=== PATIENT | male | born 1985 | race Caucasian/White ===

== ENCOUNTER 2017-12-27 16:29 | Emergency (ER) | payer MEDICAID ==
[~2017-12-27] VITALS: Ht 177.8 cm; Wt 82.0 kg
[~2017-12-27 16:29] MED LIST: FOLI0.4T2 PO; FURO-92 PO; FURO-93 PO; HYDR2TAB29 PO; OXYC-302 PO; OXYC30TA PO; PANT20TA2 PO; POTA40LI7 PO; PRAS10TA4 PO; PRAS5TAB3 PO; WARF10TA PO
[2017-12-27 17:12] LABS: CULTURE INDICATED? YES; MICROSCOPIC AUTO
[2017-12-27 17:20] LABS: BASOPHILS # (AUTO) 0.06 x10^3/uL (0-0.1); BASOPHILS % (AUTO) 1 % (0-1); EOSINOPHILS # (AUTO) 0.11 x10^3/uL (0-0.4); EOSINOPHILS % (AUTO) 1 % (1-7); LYMPHOCYTES # (AUTO) 2.54 x10^3/uL (1-3.4); LYMPHOCYTES % (AUTO) 30 % (22-44); MD NO; MEAN CORPUSCULAR HEMOGLOBIN 30.8 pg (27.5-34.5); MEAN CORPUSCULAR VOLUME 90.7 fL (81-97); MEAN PLATELET VOLUME 7.5 fL (7.4-10.4); MONOCYTES # (AUTO) 0.66 x10^3/uL (0.2-0.8); MONOCYTES % (AUTO) 8 % (2-9); NEUTROPHILS # (AUTO) 5.04 x10^3/uL (1.8-6.8); NEUTROPHILS % (AUTO) 60 % (42-75); PLATELET COUNT 385 x10^3/uL (130-400); RED BLOOD COUNT 4.72 x10^6/uL (4.38-5.82); RED CELL DISTRIBUTION WIDTH 13.1 % (9.4-14.8)
[2017-12-27 17:27] LABS: ALANINE AMINOTRANSFERASE 37 U/L (12-78); ALBUMIN 4.1 g/dL (3.4-5.0); ANION GAP 6 mmol/L (5-15); CALCIUM 9.1 mg/dL (8.5-10.1); CHLORIDE 107 mmol/L (98-107); CREATININE 1.08 mg/dL (0.7-1.3)
[2017-12-27 17:28] LABS: INTERNATIONAL NORMALIZED RATIO 2.24 (0.93-1.1); PROTHROMBIN TIME 22.7 Seconds (9.6-11.5)
[2017-12-27 17:29] LABS: ALKALINE PHOSPHATASE 80 U/L (45-117); BILIRUBIN,TOTAL 0.4 mg/dL (0.2-1.0); TOTAL PROTEIN 7.3 g/dL (6.4-8.2)
[2017-12-27] MEDS ORDERED: OXYcodone/APAP 5/325MG TABLET PO ONE (17:30)
[2017-12-27] MEDS ORDERED: OXYcodone/APAP 5/325MG TABLET ONE (17:38)
[2017-12-27 18:37] VITALS: BP 116/67
== END 2017-12-27 18:39 | disposition home or self-care (01) ==
LOC: ED 18:30
DX: S39.012A Strain of muscle, fascia and tendon of lower back, initial encounter (principal); X50.9XXA Other and unspecified overexertion or strenuous movements or postures, initial encounter; Y93.89 Activity, other specified; Y99.8 Other external cause status; Y92.89 Other specified places as the place of occurrence of the external cause; Z86.718 Personal history of other venous thrombosis and embolism; I50.9 Heart failure, unspecified; Z87.891 Personal history of nicotine dependence; Z79.01 Long term (current) use of anticoagulants; Z79.4 Long term (current) use of insulin; Z79.84 Long term (current) use of oral hypoglycemic drugs
CPT/HCPCS: 36415; 74176; 80053; 81001; 85025; 85610; 87086; 99285

== ENCOUNTER 2019-04-02 11:50 | Emergency (ER) | payer BC, MEDICAID ==
[~2019-04-02] VITALS: Ht 177.8 cm; Wt 77.6 kg
[~2019-04-02 11:50] MED LIST changes: +AMOX125T PO; +ATOR-2 PO; +CARV3.122 PO; +METF500T17 PO; +PROP10TA51 PO; +WARF1TAB74 PO
--- NOTE | 2019-04-02 13:00 | NUR ---
PT RESTING IN [place] ON MONITOR, PT REQUESTING TO LEAVE AFTER CLEAR EKG, UPDATE PT ON NEED FOR LABWORK AND FURTHER TESTING TO RYDER BLANCHARD. PT AGREEABLE TO STAY AT THIS TIME. CALL LIGHT WTIHIN REACH
[2019-04-02] MEDS ORDERED: MAALOX/HYOSCYAMINE/LIDOCAINE 45 ML BTL ONE (13:20)
[2019-04-02] MEDS ORDERED: MAALOX/HYOSCYAMINE/LIDOCAINE 45 ML BTL PO ONE (13:30)
[2019-04-02 13:44] LABS: BASOPHILS # (AUTO) 0.03 x10^3/uL (0-0.1); BASOPHILS % (AUTO) 0 % (0-1); EOSINOPHILS # (AUTO) 0.12 x10^3/uL (0-0.4); EOSINOPHILS % (AUTO) 2 % (1-7); LYMPHOCYTES % (AUTO) 22 % (22-44); MD NO; MEAN CORPUSCULAR HEMOGLOBIN 31.2 pg (27.5-34.5); MEAN CORPUSCULAR HGB CONC 33.8 g/dL (33.2-36.2); MEAN CORPUSCULAR VOLUME 92.5 fL (81-97); MONOCYTES # (AUTO) 0.71 x10^3/uL (0.2-0.8); MONOCYTES % (AUTO) 11 % (2-9); NEUTROPHILS # (AUTO) 4.39 x10^3/uL (1.8-6.8); NEUTROPHILS % (AUTO) 65 % (42-75); PLATELET COUNT 325 x10^3/uL (130-400); RED BLOOD COUNT 5.14 x10^6/uL (4.38-5.82); RED CELL DISTRIBUTION WIDTH 13.6 % (9.4-14.8)
[2019-04-02 13:55] LABS: ALBUMIN 3.9 g/dL (3.4-5.0); ANION GAP 7 mmol/L (5-15); CHLORIDE 100 mmol/L (98-107)
--- NOTE | 2019-04-02 13:56 | NUR ---
TASK RN: PT RESTING ON GURNEY. NADN. SALAZAR.
[2019-04-02 14:03] LABS: ALANINE AMINOTRANSFERASE 37 U/L (12-78); ALKALINE PHOSPHATASE 123 U/L (45-117); BILIRUBIN,TOTAL 1.5 mg/dL (0.2-1.0); TOTAL PROTEIN 7.7 g/dL (6.4-8.2); TROPONIN I < 0.015 ng/mL (0.000-0.045)
[2019-04-02 14:57] VITALS: BP 141/100
== END 2019-04-02 14:59 | disposition home or self-care (01) ==
LOC: ED 14:53
DX: R07.2 Precordial pain (principal); R06.02 Shortness of breath; E11.9 Type 2 diabetes mellitus without complications; I50.9 Heart failure, unspecified; Z87.891 Personal history of nicotine dependence
CPT/HCPCS: 36415; 71045; 80053; 83690; 84484; 85025; 93005; 99284

== ENCOUNTER 2019-05-18 18:16 | Emergency (ER) | payer BC ==
[~2019-05-18] VITALS: Ht 177.8 cm; Wt 75.1 kg
--- NOTE | 2019-05-18 19:30 | NUR ---
PT C/O CP WHILE IN LOBBY, CARDIAC H/X WITH 3 STENTS. PT TO TRIAGE, PA AT HIS SIDE FOR EVAL Addendum: 05/18/19 at 1936 by EVITA PT C/O SHARP SUBSTERNAL CP THAT RADIATEDS TO BACK, ALSO C/O SOB. EKG COMPLETED
[2019-05-18 19:55] LABS: BASOPHILS # (AUTO) 0.05 x10^3/uL (0-0.1); BASOPHILS % (AUTO) 1 % (0-1); EOSINOPHILS # (AUTO) 0.03 x10^3/uL (0-0.4); EOSINOPHILS % (AUTO) 1 % (1-7); LYMPHOCYTES # (AUTO) 2.11 x10^3/uL (1-3.4); LYMPHOCYTES % (AUTO) 38 % (22-44); MD NO; MEAN CORPUSCULAR HEMOGLOBIN 32.5 pg (27.5-34.5); MEAN CORPUSCULAR HGB CONC 33.1 g/dL (33.2-36.2); MEAN CORPUSCULAR VOLUME 98.1 fL (81-97); MEAN PLATELET VOLUME 6.6 fL (7.4-10.4); MONOCYTES # (AUTO) 0.52 x10^3/uL (0.2-0.8); MONOCYTES % (AUTO) 9 % (2-9); NEUTROPHILS # (AUTO) 2.83 x10^3/uL (1.8-6.8); NEUTROPHILS % (AUTO) 51 % (42-75); PLATELET COUNT 434 x10^3/uL (130-400); RED BLOOD COUNT 5.37 x10^6/uL (4.38-5.82); RED CELL DISTRIBUTION WIDTH 16.8 % (9.4-14.8)
--- NOTE | 2019-05-18 19:56 | NUR ---
charge manager: patient to room 37 from [facility]
[2019-05-18 20:06] LABS: ALBUMIN 4.1 g/dL (3.4-5.0); ANION GAP 9 mmol/L (5-15); CALCIUM 8.9 mg/dL (8.5-10.1); CHLORIDE 102 mmol/L (98-107)
[2019-05-18 20:12] LABS: ALANINE AMINOTRANSFERASE 36 U/L (12-78); ALKALINE PHOSPHATASE 98 U/L (45-117); BILIRUBIN,TOTAL 1.1 mg/dL (0.2-1.0); CREATININE 1.02 mg/dL (0.7-1.3); TOTAL PROTEIN 8.4 g/dL (6.4-8.2); TROPONIN I < 0.015 ng/mL (0.000-0.045)
[2019-05-18] MEDS ORDERED: PANTOPRAZOLE 40 MG IV ONE (20:46)
[2019-05-18] MEDS ORDERED: PROCHLORPERAZINE 5 MG/ML, 2ML ONE (20:46)
--- NOTE | 2019-05-18 20:57 | NUR ---
IN ROOM TO MEDICATE PT. PT EXPRESSES TO THIS RN THAT PAIN IS WHAT MAKES HIM THROW UP. PT ASKED IF HE HAD BROUGHT UP THE PAIN TO THE MD. PT STATED "NO NOT REALLY." MD MADE AWARE OF THIS CONVERSATION NO ORDERS RECIEVED.
[2019-05-18] MEDS ORDERED: PROCHLORPERAZINE 5 MG/ML, 2ML IVPush ONE (21:00)
[2019-05-18] MEDS ORDERED: PANTOPRAZOLE 40 MG IV IVPush ONE (21:00)
[2019-05-18] MEDS ORDERED: SODIUM CHLORIDE 0.9% 1,000ML IVBOLUS ONE ×2 (21:00)
[2019-05-18] MEDS ORDERED: MAALOX/HYOSCYAMINE/LIDOCAINE 45 ML BTL ONE (21:23)
[2019-05-18 21:25] VITALS: BP 125/73
--- NOTE | 2019-05-18 21:26 | NUR ---
TASK RN: PT REPORTING EPIGASTIC PAIN, MD UPDATED. PT MEDICATED PER JUL.
[2019-05-18] MEDS ORDERED: MAALOX/HYOSCYAMINE/LIDOCAINE 45 ML BTL PO ONE (21:30)
--- NOTE | 2019-05-18 21:33 | NUR ---
IN ROOM TO SPEAK WITH PT. PT REQUESTING "PAIN MEDS." PT REDIRECTED TO CONVERSATION THAT TOOK PALCE BETWEEN HIM AND MD. PT WAS MEDICATED FOR SYMPTOMS AND NO NEW ORDERS RECIEVED. PT AT THIS TIME WISHES TO LEAVE AMA. MD MADE AWARE OF SITUATION. AMA SIGNED BY PT. PT ENCOURAGED TO RETURN TO THE ER IF SYMPTOMS PERSIST OR WORSEN IN ANTY WAY.
== END 2019-05-18 21:38 | disposition left against medical advice (07) ==
LOC: ED 20:47
DX: R11.10 Vomiting, unspecified (principal); R10.9 Unspecified abdominal pain; G89.29 Other chronic pain; I25.2 Old myocardial infarction; I50.9 Heart failure, unspecified; E11.9 Type 2 diabetes mellitus without complications
CPT/HCPCS: 36415; 71045; 80053; 83690; 84484; 85025; 93005; 96361; 96374; 96375; 99284; C9113; J0780; J7030

== ENCOUNTER 2019-08-08 11:50 | Emergency (ER) | payer BC ==
[~2019-08-08] VITALS: Ht 177.8 cm; Wt 78.7 kg
--- NOTE | 2019-08-08 12:26 | NUR ---
PT TO ROOM 6 PER PEDIS. PT HAS HISTORY OF GI BLEED WITH HEART HISTORY. PT STATES "I'VE BEEN VERY NAUSEATED THE LAST FEW DAYS. YESTERDAY I SLEPT 14 HOURS, AND WHEN I WOKE UP I HAD BRIGHT RED BLOOD IN MY MOUTH. I JUST NEED THE NAUSE AND PAIN TO GO AWAY." PAIN IN EPIGASTRIC AREA. LAB DRAWN, IV STARTED. PT IN GOWN, PLACED ON MONITOR AND CALL LIGHT GIVEN.
[2019-08-08] MEDS ORDERED: PANTOPRAZOLE 80 MG in SODIUM CHLORIDE 0.9% 50 ML IVPB ONE (12:33)
[2019-08-08] MEDS ORDERED: ONDANSETRON 2MG/ML, 2ML ONE ×2 (12:51→14:07)
[2019-08-08] MEDS ORDERED: HYDROmorphone 1 MG/ML, 1ML INJ ONE ×4 (12:51→15:09)
[2019-08-08] MEDS ORDERED: PANTOPRAZOLE 40 MG IV ONE (12:52)
[2019-08-08 13:00] LABS: BASOPHILS # (AUTO) 0.05 x10^3/uL (0-0.1); BASOPHILS % (AUTO) 1 % (0-1); EOSINOPHILS # (AUTO) 0.06 x10^3/uL (0-0.4); EOSINOPHILS % (AUTO) 1 % (1-7); LYMPHOCYTES # (AUTO) 1.37 x10^3/uL (1-3.4); LYMPHOCYTES % (AUTO) 31 % (22-44); MD NO; MEAN CORPUSCULAR HEMOGLOBIN 32.7 pg (27.5-34.5); MEAN CORPUSCULAR HGB CONC 33.7 g/dL (33.2-36.2); MEAN PLATELET VOLUME 7.1 fL (7.4-10.4); MONOCYTES # (AUTO) 0.58 x10^3/uL (0.2-0.8); MONOCYTES % (AUTO) 13 % (2-9); NEUTROPHILS # (AUTO) 2.38 x10^3/uL (1.8-6.8); NEUTROPHILS % (AUTO) 54 % (42-75); PLATELET COUNT 380 x10^3/uL (130-400); RED BLOOD COUNT 4.96 x10^6/uL (4.38-5.82); RED CELL DISTRIBUTION WIDTH 13.9 % (9.4-14.8)
[2019-08-08] MEDS ORDERED: HYDROmorphone 2 MG/ML, 1ML IVPush PRN ×2 (13:00→14:00)
[2019-08-08] MEDS ORDERED: SODIUM CHLORIDE FLUSH 10ML SYR IVF ONE (13:00)
[2019-08-08] MEDS ORDERED: ONDANSETRON 2MG/ML, 2ML IVPush ONE ×2 (13:00→14:00)
--- NOTE | 2019-08-08 13:00 | NUR ---
IV MEDICATIONS WORKING, PT STILL HAVE PAIN. REQUESTING ADDITIONAL MEDICATIONS. MD NOTIFIED.
[2019-08-08 13:04] LABS: ALANINE AMINOTRANSFERASE 49 U/L (12-78); ALBUMIN 3.7 g/dL (3.4-5.0); ANION GAP 7 mmol/L (5-15); CALCIUM 8.5 mg/dL (8.5-10.1); CHLORIDE 106 mmol/L (98-107)
[2019-08-08 13:05] LABS: INTERNATIONAL NORMALIZED RATIO 1.12 (0.93-1.1); PROTHROMBIN TIME 11.9 Seconds (9.6-11.5)
[2019-08-08 13:09] LABS: ALKALINE PHOSPHATASE 71 U/L (45-117); BILIRUBIN,TOTAL 0.6 mg/dL (0.2-1.0); CREATININE 1.08 mg/dL (0.7-1.3); TOTAL PROTEIN 7.4 g/dL (6.4-8.2); TROPONIN I < 0.015 ng/mL (0.000-0.045)
--- NOTE | 2019-08-08 13:33 | NUR ---
PT MEDICATED. PT STABLE, LYING ON BED.
--- NOTE | 2019-08-08 14:51 | NUR ---
PT STABLE. REQUESTING SOMETHING TO DRINK, AND WOULD LIKE TO GO HOME.
--- NOTE | 2019-08-08 15:00 | NUR ---
PT FEELING MUCH BETTER, CONTINUE TO LAY ON CART. PAIN AND NAUSEA ARE GONE.
[2019-08-08 16:24] VITALS: BP 106/75
--- NOTE | 2019-08-08 16:27 | NUR ---
DISCHARGE INSTRUCTIONS GIVEN TO PATIENT WITH 2 SCRIPTS. PT VERBALIZES UNDERSTANDING OF ALL INSTRUCTIONS AND FOLLOW UP.
== END 2019-08-08 16:27 | disposition home or self-care (01) ==
LOC: ED 14:32
DX: K92.1 Melena (principal); E11.9 Type 2 diabetes mellitus without complications; I50.9 Heart failure, unspecified; I25.2 Old myocardial infarction
CPT/HCPCS: 36415; 71045; 80053; 83605; 83690; 84484; 85025; 85610; 85730; 86850; 86900; 93005; 96374; 96375; 96376; 99285; C9113; J2405

== ENCOUNTER 2019-08-09 06:12 | Emergency (ER) | payer BC ==
[~2019-08-09] VITALS: Ht 177.8 cm; Wt 80.7 kg
--- NOTE | 2019-08-09 06:42 | NUR ---
PT RESTING ON GURNEY, MONITORS APPLIED, SIDERAILS UP X2, PROVIDED PT WITH URINE CUP FOR SAMPLE, CALL LIGHT WITHIN REACH
[2019-08-09 06:57] LABS: BASOPHILS # (AUTO) 0.03 x10^3/uL (0-0.1); BASOPHILS % (AUTO) 1 % (0-1); EOSINOPHILS # (AUTO) 0.13 x10^3/uL (0-0.4); EOSINOPHILS % (AUTO) 2 % (1-7); LYMPHOCYTES # (AUTO) 1.67 x10^3/uL (1-3.4); LYMPHOCYTES % (AUTO) 29 % (22-44); MD NO; MEAN CORPUSCULAR HEMOGLOBIN 32.8 pg (27.5-34.5); MEAN CORPUSCULAR HGB CONC 34.1 g/dL (33.2-36.2); MEAN CORPUSCULAR VOLUME 96.2 fL (81-97); MEAN PLATELET VOLUME 6.7 fL (7.4-10.4); MONOCYTES # (AUTO) 0.63 x10^3/uL (0.2-0.8); MONOCYTES % (AUTO) 11 % (2-9); NEUTROPHILS # (AUTO) 3.37 x10^3/uL (1.8-6.8); NEUTROPHILS % (AUTO) 58 % (42-75); PLATELET COUNT 325 x10^3/uL (130-400); RED BLOOD COUNT 4.34 x10^6/uL (4.38-5.82); RED CELL DISTRIBUTION WIDTH 13.3 % (9.4-14.8)
--- NOTE | 2019-08-09 07:00 | NUR ---
received report from olga campa.
[2019-08-09 07:09] LABS: ALANINE AMINOTRANSFERASE 48 U/L (12-78); ALBUMIN 3.2 g/dL (3.4-5.0); ANION GAP 11 mmol/L (5-15); CALCIUM 7.9 mg/dL (8.5-10.1); CHLORIDE 103 mmol/L (98-107); CREATININE 1.06 mg/dL (0.7-1.3)
[2019-08-09 07:11] LABS: ALKALINE PHOSPHATASE 65 U/L (45-117); BILIRUBIN,TOTAL 0.6 mg/dL (0.2-1.0); TOTAL PROTEIN 6.3 g/dL (6.4-8.2)
[2019-08-09 07:33] VITALS: BP 115/80
--- NOTE | 2019-08-09 07:38 | NUR ---
pt stating he needs to leave for work in 10 minutes, states only cares about lipase level, resting in bed, respirations even and unlabored, no signs of distress.
--- NOTE | 2019-08-09 07:46 | NUR ---
pt asked for ama forms, pt educated that doctor has not reassessed, and educated on disease process. pt signed ama forms despite education, stating if he doesn't get to work he'll lose his job.
== END 2019-08-09 07:50 | disposition left against medical advice (07) ==
LOC: ED 06:40
DX: R10.13 Epigastric pain (principal); F17.210 Nicotine dependence, cigarettes, uncomplicated; I50.9 Heart failure, unspecified; E11.9 Type 2 diabetes mellitus without complications; I25.2 Old myocardial infarction; E78.5 Hyperlipidemia, unspecified
CPT/HCPCS: 36415; 80053; 83690; 85025; 99283

== ENCOUNTER 2019-08-11 16:11 | Emergency (ER) | payer BC ==
[~2019-08-11] VITALS: Ht 177.8 cm; Wt 80.6 kg
--- NOTE | 2019-08-11 16:36 | NUR ---
THIS IS A 34 YO M W/ C/O NAUSEA, BRIGHT RED BLOODY EMESIS AND EPIGASTRIC PAIN 8/10 X6 DAYS. PT REPORTS HE WAS RECENTLY SEEN HERE AND WAS TO BE ADMITTED BUT LEFT AMA DUE TO WORK. PT REPORTS WORSENING SYMPTOMS. PT IS TACHYCARDIC, OTHER VS WDL. PIV STARTED, LABS DRAWN. PT IS RESTING ON GURNEY W/ CALL LIGHT IN REACH. AWAITING ED EVAL.
[2019-08-11] MEDS ORDERED: ONDANSETRON 2MG/ML, 2ML ONE ×2 (16:42→17:51)
[2019-08-11] MEDS ORDERED: FAMOTIDINE 20 MG/2 ML IV ONE (17:00)
[2019-08-11] MEDS ORDERED: SODIUM CHLORIDE 0.9% 1,000ML IVBOLUS ONE (17:00)
[2019-08-11] MEDS ORDERED: SODIUM CHLORIDE 0.9% 1,000 ML IV ONE (17:00)
[2019-08-11] MEDS ORDERED: SODIUM CHLORIDE FLUSH 10ML SYR IVF ONE (17:00)
[2019-08-11] MEDS ORDERED: FAMOTIDINE 20 MG/2 ML ONE (17:05)
[2019-08-11] MEDS ORDERED: HYDROmorphone 1 MG/ML, 1ML INJ ONE ×2 (17:05→17:51)
[2019-08-11] MEDS: HYDROmorphone 2 MG/ML, 1ML IVPush PRN ×2 (17:09→17:52)
--- NOTE | 2019-08-11 17:17 | NUR ---
PT MEDICATED PER EMAR. CONNECTED TO MONITORING. CALL LIGHT IN REACH. REPORTS RELIEF OF PAIN W/ MEDS.
[2019-08-11 17:36] LABS: BASOPHILS # (AUTO) 0.04 x10^3/uL (0-0.1); BASOPHILS % (AUTO) 1 % (0-1); EOSINOPHILS # (AUTO) 0.33 x10^3/uL (0-0.4); EOSINOPHILS % (AUTO) 5 % (1-7); LYMPHOCYTES # (AUTO) 2.34 x10^3/uL (1-3.4); LYMPHOCYTES % (AUTO) 32 % (22-44); MD NO; MEAN CORPUSCULAR HEMOGLOBIN 32.8 pg (27.5-34.5); MEAN CORPUSCULAR VOLUME 96.4 fL (81-97); MEAN PLATELET VOLUME 7.5 fL (7.4-10.4); MONOCYTES # (AUTO) 0.59 x10^3/uL (0.2-0.8); MONOCYTES % (AUTO) 8 % (2-9); NEUTROPHILS # (AUTO) 4.01 x10^3/uL (1.8-6.8); NEUTROPHILS % (AUTO) 55 % (42-75); PLATELET COUNT 366 x10^3/uL (130-400); RED BLOOD COUNT 4.27 x10^6/uL (4.38-5.82); RED CELL DISTRIBUTION WIDTH 13.4 % (9.4-14.8)
[2019-08-11 17:47] LABS: ALBUMIN 3.3 g/dL (3.4-5.0); ANION GAP 13 mmol/L (5-15); CALCIUM 8.2 mg/dL (8.5-10.1); CHLORIDE 110 mmol/L (98-107)
[2019-08-11 17:50] LABS: ALANINE AMINOTRANSFERASE 40 U/L (12-78); ALKALINE PHOSPHATASE 73 U/L (45-117); BILIRUBIN,TOTAL 0.1 mg/dL (0.2-1.0); CREATININE 0.93 mg/dL (0.7-1.3); TOTAL PROTEIN 6.9 g/dL (6.4-8.2)
[2019-08-11] MEDS ORDERED: protonix (17:50)
[2019-08-11] MEDS ORDERED: APIX5TAB PO (17:50)
[2019-08-11 17:55] VITALS: BP 115/65
--- NOTE | 2019-08-11 17:57 | NUR ---
PT MEDICATED PER EMAR FOR C/O NAUSEA AND PAIN 12/29.
[2019-08-11] MEDS ORDERED: ONDANSETRON 2MG/ML, 2ML IVPush ONE (18:00)
--- NOTE | 2019-08-11 18:00 | NUR ---
ALL TESTS RESULTED. PT IS UP FOR RECHECK AT THIS TIME.
--- NOTE | 2019-08-11 18:53 | NUR ---
Patient/Caregiver given discharge instructions and they have confirmed that they understand the instructions. Patient ambulatory with steady gait.
== END 2019-08-11 18:55 | disposition home or self-care (01) ==
LOC: ED 16:42
DX: K29.20 Alcoholic gastritis without bleeding (principal); F10.20 Alcohol dependence, uncomplicated; E11.9 Type 2 diabetes mellitus without complications; E78.5 Hyperlipidemia, unspecified; I25.2 Old myocardial infarction; I50.9 Heart failure, unspecified; Z86.718 Personal history of other venous thrombosis and embolism; Z87.891 Personal history of nicotine dependence; Z95.0 Presence of cardiac pacemaker; Y90.9 Presence of alcohol in blood, level not specified
CPT/HCPCS: 36415; 80053; 80307; 83690; 85025; 96374; 96375; 96376; 99284; J1170; J2405; J3490; J7030

== ENCOUNTER 2019-10-03 14:26 | Emergency (ER) | payer BC ==
[~2019-10-03] VITALS: Ht 177.8 cm; Wt 80.0 kg
[~2019-10-03 14:26] MED LIST changes: +APIX5TAB PO; -OXYC30TA PO; +OXYC30TA3 PO; +protonix
--- NOTE | 2019-10-03 14:27 | NUR ---
Late Entry: pt wheeled back to room, changed into gown, resting on gurney, RESP WNL, call light on lap, placed on monitor, waiting on test results. DONATO.
[2019-10-03] MEDS ORDERED: ASPIRIN 81 MG TABLET CHEW ONE (14:59)
[2019-10-03] MEDS ORDERED: ASPIRIN 81 MG TABLET CHEW PO ONE (15:00)
[2019-10-03] MEDS ORDERED: SODIUM CHLORIDE FLUSH 10ML SYR IVF ONE (15:00)
--- NOTE | 2019-10-03 15:24 | NUR ---
Libby ferrera in ED - 10/03/19 at 1526 by CECILIA pt wheeled back to room, changed into gown, resting on gurney, RESP WNL, call light on lap, placed on monitor, waiting on test results. DONATO.
--- NOTE | 2019-10-03 15:26 | NUR ---
pt resting on gurney, RESP WNL, NAD, call light on lap, placed on monitor, waiting on test results. WCTM.
[2019-10-03 15:28] VITALS: BP 130/91
[2019-10-03 15:29] LABS: BASOPHILS # (AUTO) 0.04 x10^3/uL (0-0.1); BASOPHILS % (AUTO) 1 % (0-1); EOSINOPHILS # (AUTO) 0.22 x10^3/uL (0-0.4); EOSINOPHILS % (AUTO) 3 % (1-7); LYMPHOCYTES # (AUTO) 1.41 x10^3/uL (1-3.4); LYMPHOCYTES % (AUTO) 19 % (22-44); MD NO; MEAN CORPUSCULAR HEMOGLOBIN 32.9 pg (27.5-34.5); MEAN CORPUSCULAR HGB CONC 33.7 g/dL (33.2-36.2); MEAN CORPUSCULAR VOLUME 97.4 fL (81-97); MEAN PLATELET VOLUME 6.7 fL (7.4-10.4); MONOCYTES # (AUTO) 0.64 x10^3/uL (0.2-0.8); MONOCYTES % (AUTO) 9 % (2-9); NEUTROPHILS # (AUTO) 5.14 x10^3/uL (1.8-6.8); NEUTROPHILS % (AUTO) 69 % (42-75); PLATELET COUNT 378 x10^3/uL (130-400); RED BLOOD COUNT 4.16 x10^6/uL (4.38-5.82); RED CELL DISTRIBUTION WIDTH 16.5 % (9.4-14.8)
--- NOTE | 2019-10-03 15:38 | NUR ---
Pt decided to AMA. IV DC'd, pt P/W/D, NAD, RESP WNL. Even and steady gait.
[2019-10-03 15:41] LABS: ALANINE AMINOTRANSFERASE 24 U/L (12-78); ALBUMIN 4.2 g/dL (3.4-5.0); ANION GAP 9 mmol/L (5-15); CALCIUM 9.2 mg/dL (8.5-10.1); CHLORIDE 101 mmol/L (98-107); CREATININE 0.94 mg/dL (0.7-1.3)
[2019-10-03 15:45] LABS: ALKALINE PHOSPHATASE 87 U/L (45-117); BILIRUBIN,TOTAL 0.5 mg/dL (0.2-1.0); TROPONIN I < 0.015 ng/mL (0.000-0.045)
[2019-10-03 16:01] LABS: PROTHROMBIN TIME 10.6 Seconds (9.6-11.5)
== END 2019-10-03 15:39 | disposition home or self-care (01) ==
LOC: ED 15:03
DX: R00.0 Tachycardia, unspecified (principal); R07.89 Other chest pain; I25.2 Old myocardial infarction; I11.0 Hypertensive heart disease with heart failure; I50.9 Heart failure, unspecified; E11.9 Type 2 diabetes mellitus without complications; Z86.718 Personal history of other venous thrombosis and embolism
CPT/HCPCS: 36415; 71045; 80053; 84484; 85025; 85610; 85730; 93005; 99285

== ENCOUNTER 2019-11-19 10:02 | Inpatient (IN) | payer BC ==
[~2019-11-19] VITALS: Ht 177.8 cm; Wt 81.2 kg
[2019-11-19] MEDS ORDERED: ONDANSETRON 2MG/ML, 2ML ONE ×2 (10:33→12:37)
--- NOTE | 2019-11-19 10:45 | NUR ---
late entry for 1030: pt presents to ED with c/o sternal chest pain and sob x 9 days, also notes right ear pain and congestion. pt states for last several days he has been unable to tolerate po intake d/t n/v/d. pt denies drug use, states he is withdrawing from etoh, states last drink yesterday. pt notes he has not taken any of his home meds x 2 weeks, including warfarin. pt attached to all monitors, sinus tach with no ectopy on vehicle monitor technician, rate 110's. ekg taken on arrival. this RN unable to establish PIV in arm, left EJ PIV placed on first attempt with pt consent. PIV flushes easily with blood return. ERP notified pt has not taken coumadin x 2 weeks and has c/o cp with sob, ERP declines to order CT at this time. Addendum: 11/19/19 at 1314 by ELSIE late entry for 104: pt presents to ED with c/o sternal chest pain and sob x 9 days, also notes right ear pain and congestion. pt states for last several days he has been unable to tolerate po intake d/t n/v/d. pt denies drug use, states he is withdrawing from etoh, states last drink yesterday. pt notes he has not taken any of his home meds x 2 weeks, including warfarin. pt attached to all monitors, sinus tach with no ectopy on vehicle monitor technician, rate 110's. ekg taken on arrival. this RN unable to establish PIV in arm, left EJ PIV placed on first attempt with pt consent. PIV flushes easily with blood return. ERP notified pt has not taken coumadin x 2 weeks and has c/o cp with sob, ERP declines to order CT at this time.
[2019-11-19] MEDS ORDERED: ONDANSETRON 2MG/ML, 2ML IVPush ONE ×2 (11:00→13:00)
[2019-11-19] MEDS ORDERED: SODIUM CHLORIDE 0.9% 1,000ML IVBOLUS ONE (11:00)
--- NOTE | 2019-11-19 11:00 | NUR ---
LATE ENTRY FOR 1100: PT INSTRUCTED TO PROVIDE CLEAN CATCH URINE SAMPLE, PT DENIES URGE AT THIS TIME.
[2019-11-19 11:09] LABS: BASOPHILS % (AUTO) 0 % (0-1); EOSINOPHILS % (AUTO) 0 % (1-7); LYMPHOCYTES # (AUTO) 0.77 x10^3/uL (1-3.4); LYMPHOCYTES % (AUTO) 15 % (22-44); MD NO; MEAN CORPUSCULAR HEMOGLOBIN 33.2 pg (27.5-34.5); MEAN CORPUSCULAR HGB CONC 33.1 g/dL (33.2-36.2); MEAN CORPUSCULAR VOLUME 100.2 fL (81-97); MEAN PLATELET VOLUME 7.7 fL (7.4-10.4); MONOCYTES # (AUTO) 0.35 x10^3/uL (0.2-0.8); MONOCYTES % (AUTO) 7 % (2-9); NEUTROPHILS # (AUTO) 3.99 x10^3/uL (1.8-6.8); NEUTROPHILS % (AUTO) 78 % (42-75); PLATELET COUNT 101 x10^3/uL (130-400); RED BLOOD COUNT 4.38 x10^6/uL (4.38-5.82); RED CELL DISTRIBUTION WIDTH 14.2 % (9.4-14.8)
[2019-11-19] MEDS ORDERED: LORazepam 2 MG/ML, 1ML ONE ×4 (11:14→16:32)
[2019-11-19 11:19] LABS: ALBUMIN 2.2 g/dL (3.4-5.0); ANION GAP 14 mmol/L (5-15); CALCIUM 7.7 mg/dL (8.5-10.1); CHLORIDE 87 mmol/L (98-107)
[2019-11-19] MEDS: LORazepam 2 MG/ML, 1ML IVPush PRN ×3 (11:23→13:54)
[2019-11-19 11:26] LABS: ALANINE AMINOTRANSFERASE 109 U/L (12-78); ALKALINE PHOSPHATASE 378 U/L (45-117); BILIRUBIN,TOTAL 1.4 mg/dL (0.2-1.0); CREATININE 0.87 mg/dL (0.7-1.3); TOTAL PROTEIN 5.6 g/dL (6.4-8.2)
[2019-11-19] MEDS ORDERED: SODIUM CHLORIDE FLUSH 10ML SYR IVF ONE (11:30)
--- NOTE | 2019-11-19 11:30 | NUR ---
pt seen and examined by BETH Ramos, pt is a&o, resps even and unlabored. pt is tremulous, stating "I think I'm withdrawing from alcohol." ativan ordered and admin per emar, pt tolerating well. pt states anxiety, nausea and tremors improved s/p ativan admin. pt is sinus tach rate 110's on classroom monitor with no ectopy. left EJ PIV infusing NS with no s/sx infiltration.
[2019-11-19 11:39] LABS: TROPONIN I 0.017 ng/mL (0.000-0.045)
[2019-11-19] MEDS ORDERED: NS + 40MEQ KCL 1,000 ML IV ONE ×2 (11:43→12:09)
[2019-11-19 12:26] LABS: PROTHROMBIN TIME 56.7 Seconds (9.6-11.5)
[2019-11-19 12:27] LABS: INTERNATIONAL NORMALIZED RATIO 5.26 (0.93-1.1)
--- NOTE | 2019-11-19 12:45 | NUR ---
pt resting on gurney, resps even and unlabored. pt requests second dose ativan, reporting increased anxiety, tremors noted. pt medicated per emar, tolerated well. pt remains in sinus tach, rate 110's with no ectopy. NS with K infusing via IV pump to EJ, no s/sx infiltration. pt denies pain, no swelling or leakage noted. pt is a&o, resps even and unlabored, able to speak in full sentences without difficulty.
[2019-11-19] MEDS ORDERED: WARF7.5T46 PO (12:46)
[2019-11-19] MEDS ORDERED: CLON1TAB PO (12:47)
[2019-11-19] MEDS ORDERED: SODIUM CHLORIDE FLUSH 10ML SYR IVF PRN (13:00)
--- NOTE | 2019-11-19 13:18 | NUR ---
PATSY QUEEN at bedside for admit assessment.
--- NOTE | 2019-11-19 13:30 | NUR ---
THIS RN NOTIFIED [facility] MD THAT PT C/O RT EAR PAIN AND DRIED BLOOD IS NOTED TO OUTER EAR. PT INITIALLY DENIED TRAUMA BUT THEN STATES HE FELL 1 MONTH AGO WITH NO INJURY TO EAR AT THAT TIME. [facility] MD NOTIFIED THAT PT HASN'T HAD COUMADIN X 2 WEEKS AND HAS CP/SOB, NO ORDERS RECEIVED.
--- NOTE | 2019-11-19 14:02 | NUR ---
PT'S HR INCREASED, PT C/O HEADACHE, TREMORS NOTED WITH ARMS EXTENDED. PT MEDICATED PER EMAR WITH 3RD DOSE ATIVAN. PT IS SINUS TACH RATE 130'S ON CARDIAC MONTIOR, NO ECTOPY NOTED. AWAITING BED ASSIGNMENT AND TRANSPORT TO MED/TELE FLOOR.
--- NOTE | 2019-11-19 14:48 | NUR ---
PT TO CT.
[2019-11-19] MEDS ORDERED: CALCIUM GLUCONATE 0.46MEQ/1ML IVPush ONE (15:00)
[2019-11-19] MEDS ORDERED: LORazepam 1MG TABLET PO PRN ×2 (15:00)
[2019-11-19] MEDS ORDERED: LORazepam 2 MG/ML, 1ML IV PRN ×3 (15:00)
[2019-11-19] MEDS ORDERED: hydrALAzine 20 MG/ML, 1ML IVPush PRN (15:00)
[2019-11-19] MEDS ORDERED: LABETALOL 5MG/ML, 20ML IVPush PRN (15:00)
--- NOTE | 2019-11-19 15:00 | NUR ---
pt back from CT at this time, report given to MILLIE Coffman who is assuming care.
--- NOTE | 2019-11-19 15:03 | NUR ---
Page to [facility] med regarding medication clarification.
--- NOTE | 2019-11-19 15:23 | NUR ---
Spoke with MD Nila GARNER about pts low K+ and Low Ca and the order of calcium gluconate could drop the K+ further and pt already has significant cardiac hx. Per MD Garciaion to hold off on giving calcium gluconate until next CMP and to stop order for d5 1/2NS 40kcl IVF and chage to NS 40K @150ml hrs. Head CT results read back to .
[2019-11-19 15:34] LABS: TROPONIN I < 0.015 ng/mL (0.000-0.045)
[2019-11-19] MEDS ORDERED: INSULIN LISPRO SINGLE DOSE, ER SQ-INSULIN ONE (15:42)
[2019-11-19] MEDS ORDERED: D5%-0.45NACL+KCL 20MEQ 1,000 ML IV SCH (16:00)
[2019-11-19] MEDS: INSULIN LISPRO 100 UNITS/ML, PEN SQ-INSULIN SCH ×2 (16:49→19:36)
--- NOTE | 2019-11-19 16:50 | NUR ---
Pt medicated per emar, moved to hospital bed.
[2019-11-19] MEDS ORDERED: CEFTRIAXONE PMX 1GM/50ML 50 ML ONE (17:24)
[2019-11-19] MEDS: CEFTRIAXONE PMX 1GM/50ML 50 ML IV SCH (17:29)
--- NOTE | 2019-11-19 17:34 | NUR ---
Shavon Riojas RN informed of discussion with [facility] and need to call back when BMP is resulted to get okay to proceede with Calcium gluconate.
[2019-11-19 17:45] LABS: ANION GAP 11 mmol/L (5-15); CALCIUM 6.9 mg/dL (8.5-10.1); CHLORIDE 91 mmol/L (98-107); CREATININE 1.09 mg/dL (0.7-1.3)
[2019-11-19] MEDS ORDERED: POTASSIUM CHLORIDE 20 MEQ TAB.ER.PRT PO ONE (18:00)
[2019-11-19] MEDS ORDERED: POTASSIUM CHLORIDE 20 MEQ TAB.ER.PRT ONE (18:20)
[2019-11-19] MEDS ORDERED: MAGNESIUM SULFATE PMX 4GM/100M 100 ML ONE (18:20)
[2019-11-19 18:28] VITALS: BP 113/76
[2019-11-19] MEDS ORDERED: MAGNESIUM SULFATE PMX 4GM/100M 100 ML IV ONE (18:30)
[2019-11-19] MEDS ORDERED: SODIUM CHLORIDE 0.9% 1,000 ML IV SCH (18:30)
[2019-11-19] MEDS: SODIUM CHLORIDE 0.9% 1,000 ML IV SCH (18:43)
[2019-11-19] MEDS: LORazepam 2 MG/ML, 1ML IV PRN (19:29)
[2019-11-19] MEDS: ACETAMINOPHEN 325 MG TABLET PO PRN (19:29)
[2019-11-19 19:36] VITALS: BP 126/64
[2019-11-19] MEDS ORDERED: NS + 40MEQ KCL 1,000 ML IV SCH (20:00)
[2019-11-19 20:15] LABS: AMPHETAMINE SCREEN, URINE Negative (Negative); BARBITURATE SCREEN, URINE Negative (Negative); BENZODIAZEPINE SCREEN, URINE Negative (Negative); CANNABINOID SCREEN, URINE Negative (Negative); COCAINE SCREEN, URINE Negative (Negative); METHADONE SCREEN, URINE Negative (Negative); OPIATE SCREEN, URINE Negative (Negative)
[2019-11-19 20:40] LABS: MICROSCOPIC INDICATED
[2019-11-19 20:57] LABS: TROPONIN I 0.021 ng/mL (0.000-0.045)
[2019-11-19] MEDS ORDERED: AMOXICILLIN/CLAV 875-125MG TABLET PO SCH (21:00)
[2019-11-19] MEDS: CIPROFLOXACIN DEXAMETHASONE EAR SUSP 7.5ML RIGHT EAR SCH (21:25)
[2019-11-19] MEDS: ONDANSETRON ODT 4 MG PO PRN (22:48)
[2019-11-19] MEDS ORDERED: SERT25TA3 PO (23:15)
[2019-11-19] MEDS ORDERED: OMNIPAQUE 350 MG/ML, 100ML BOTTLE ONE (23:25)
[2019-11-20 00:29] VITALS: BP 118/81
[2019-11-20 05:21] LABS: INTERNATIONAL NORMALIZED RATIO 3.93 (0.93-1.1); PROTHROMBIN TIME 42.2 Seconds (9.6-11.5)
[2019-11-20 05:24] LABS: ALBUMIN 1.9 g/dL (3.4-5.0); ANION GAP 3 mmol/L (5-15); CALCIUM 7.4 mg/dL (8.5-10.1); CHLORIDE 95 mmol/L (98-107)
[2019-11-20 05:26] LABS: MEAN CORPUSCULAR HEMOGLOBIN 33.3 pg (27.5-34.5); MEAN CORPUSCULAR HGB CONC 33.5 g/dL (33.2-36.2); MEAN CORPUSCULAR VOLUME 99.3 fL (81-97); MEAN PLATELET VOLUME 7.8 fL (7.4-10.4); PLATELET COUNT 78 x10^3/uL (130-400); RED BLOOD COUNT 3.84 x10^6/uL (4.38-5.82); RED CELL DISTRIBUTION WIDTH 14.4 % (9.4-14.8)
[2019-11-20 05:28] LABS: ALANINE AMINOTRANSFERASE 96 U/L (12-78); ALKALINE PHOSPHATASE 378 U/L (45-117); BILIRUBIN,TOTAL 1.4 mg/dL (0.2-1.0); CREATININE 0.74 mg/dL (0.7-1.3)
[2019-11-20 06:00] LABS: BASOPHILS # (AUTO) 0.02 x10^3/uL (0-0.1); BASOPHILS % (AUTO) 1 % (0-1); EOSINOPHILS # (AUTO) 0.02 x10^3/uL (0-0.4); EOSINOPHILS % (AUTO) 1 % (1-7); LYMPHOCYTES # (AUTO) 1.11 x10^3/uL (1-3.4); LYMPHOCYTES % (AUTO) 34 % (22-44); MD SCAN; MONOCYTES # (AUTO) 0.29 x10^3/uL (0.2-0.8); MONOCYTES % (AUTO) 9 % (2-9); NEUTROPHILS # (AUTO) 1.81 x10^3/uL (1.8-6.8); NEUTROPHILS % (AUTO) 56 % (42-75)
[2019-11-20] MEDS: SODIUM CHLORIDE 0.9% 1,000 ML IV SCH ×2 (06:00→14:52)
[2019-11-20] MEDS ORDERED: POTASSIUM CHLORIDE 20 MEQ TAB.ER.PRT PO ONE (06:00)
[2019-11-20 07:26] VITALS: BP 110/78
[2019-11-20] MEDS: INSULIN LISPRO 100 UNITS/ML, PEN SQ-INSULIN SCH ×4 (08:27→21:01)
[2019-11-20] MEDS: PROPRANOLOL 10 MG TABLET PO SCH (08:27)
[2019-11-20] MEDS: CIPROFLOXACIN DEXAMETHASONE EAR SUSP 7.5ML RIGHT EAR SCH ×2 (08:27→21:01)
[2019-11-20] MEDS ORDERED: OFLOXACIN EAR DROPS 0.3%, 5ML OTIC SCH (09:00)
[2019-11-20 13:22] VITALS: BP 117/86
[2019-11-20] MEDS: LORazepam 2 MG/ML, 1ML IV PRN (13:34)
[2019-11-20] MEDS: ONDANSETRON ODT 4 MG PO PRN (13:34)
[2019-11-20] MEDS: CEFTRIAXONE PMX 1GM/50ML 50 ML IV SCH (17:06)
[2019-11-20] MEDS ORDERED: WARFARIN 1 MG TABLET PO-COUM ONE (18:00)
[2019-11-20 19:17] VITALS: BP 114/80
[2019-11-20] MEDS: OXYcodone/APAP 5/325MG TABLET PO PRN (22:54)
[2019-11-21 00:47] VITALS: BP 106/78
[2019-11-21] MEDS: OXYcodone/APAP 5/325MG TABLET PO PRN ×5 (03:03→22:07)
[2019-11-21] MEDS: SODIUM CHLORIDE 0.9% 1,000 ML IV SCH ×2 (05:00→13:37)
[2019-11-21 06:56] LABS: INTERNATIONAL NORMALIZED RATIO 2.38 (0.93-1.1); PROTHROMBIN TIME 25.4 Seconds (9.6-11.5)
[2019-11-21] MEDS: INSULIN LISPRO 100 UNITS/ML, PEN SQ-INSULIN SCH ×4 (07:00→22:13)
[2019-11-21 07:23] VITALS: BP 116/82
[2019-11-21] MEDS: PROPRANOLOL 10 MG TABLET PO SCH (09:05)
[2019-11-21] MEDS: CIPROFLOXACIN DEXAMETHASONE EAR SUSP 7.5ML RIGHT EAR SCH ×2 (09:05→22:08)
[2019-11-21] MEDS: LORazepam 1MG TABLET PO PRN (13:36)
[2019-11-21 14:40] VITALS: BP 100/71
[2019-11-21] MEDS: CEFTRIAXONE PMX 1GM/50ML 50 ML IV SCH (17:37)
[2019-11-21] MEDS: ONDANSETRON ODT 4 MG PO PRN ×2 (17:54→22:06)
[2019-11-21] MEDS: LORazepam 2 MG/ML, 1ML IV PRN (17:54)
[2019-11-21] MEDS ORDERED: WARFARIN 5 MG TABLET PO-COUM ONE (18:00)
[2019-11-21 18:55] VITALS: BP 105/69
[2019-11-21] MEDS: LORazepam 0.5MG TABLET PO PRN (22:08)
[2019-11-22] MEDS: SODIUM CHLORIDE 0.9% 1,000 ML IV SCH ×3 (00:22→17:49)
[2019-11-22 02:00] VITALS: BP 112/68
[2019-11-22] MEDS: LORazepam 0.5MG TABLET PO PRN (02:11)
[2019-11-22] MEDS: OXYcodone/APAP 5/325MG TABLET PO PRN ×6 (02:11→20:09)
[2019-11-22 05:28] LABS: INTERNATIONAL NORMALIZED RATIO 1.54 (0.93-1.1); PROTHROMBIN TIME 16.4 Seconds (9.6-11.5)
[2019-11-22] MEDS: LORazepam 2 MG/ML, 1ML IV PRN (06:14)
[2019-11-22] MEDS: INSULIN LISPRO 100 UNITS/ML, PEN SQ-INSULIN SCH ×4 (07:00→21:47)
[2019-11-22 08:10] VITALS: BP 120/85
[2019-11-22] MEDS: PROPRANOLOL 10 MG TABLET PO SCH (08:12)
[2019-11-22] MEDS: CIPROFLOXACIN DEXAMETHASONE EAR SUSP 7.5ML RIGHT EAR SCH ×2 (08:16→22:00)
[2019-11-22] MEDS: LORazepam 1MG TABLET PO PRN (11:32)
[2019-11-22] MEDS ORDERED: LABETALOL 5MG/ML, 20ML IVPush PRN (12:00)
[2019-11-22 12:42] VITALS: BP 111/78
[2019-11-22] MEDS: ONDANSETRON ODT 4 MG PO PRN (15:43)
[2019-11-22] MEDS: CEFTRIAXONE PMX 1GM/50ML 50 ML IV SCH (17:48)
[2019-11-22] MEDS ORDERED: WARFARIN 7.5 MG TABLET PO-COUM ONE (18:00)
[2019-11-22 21:40] VITALS: BP 130/94
[2019-11-23] MEDS: OXYcodone/APAP 5/325MG TABLET PO PRN ×7 (00:01→23:55)
[2019-11-23 00:39] VITALS: BP 122/86
[2019-11-23] MEDS: SODIUM CHLORIDE 0.9% 1,000 ML IV SCH (04:05)
[2019-11-23 05:26] LABS: INTERNATIONAL NORMALIZED RATIO 1.39 (0.93-1.1); PROTHROMBIN TIME 14.8 Seconds (9.6-11.5)
[2019-11-23 06:19] LABS: BASOPHILS # (AUTO) 0.04 x10^3/uL (0-0.1); BASOPHILS % (AUTO) 1 % (0-1); EOSINOPHILS # (AUTO) 0.09 x10^3/uL (0-0.4); EOSINOPHILS % (AUTO) 2 % (1-7); LYMPHOCYTES # (AUTO) 1.65 x10^3/uL (1-3.4); LYMPHOCYTES % (AUTO) 44 % (22-44); MD NO; MEAN CORPUSCULAR HEMOGLOBIN 32.6 pg (27.5-34.5); MEAN CORPUSCULAR HGB CONC 32.4 g/dL (33.2-36.2); MEAN CORPUSCULAR VOLUME 100.6 fL (81-97); MEAN PLATELET VOLUME 7.2 fL (7.4-10.4); MONOCYTES # (AUTO) 0.37 x10^3/uL (0.2-0.8); MONOCYTES % (AUTO) 10 % (2-9); NEUTROPHILS # (AUTO) 1.64 x10^3/uL (1.8-6.8); NEUTROPHILS % (AUTO) 43 % (42-75); PLATELET COUNT 159 x10^3/uL (130-400); RED BLOOD COUNT 3.49 x10^6/uL (4.38-5.82); RED CELL DISTRIBUTION WIDTH 14.1 % (9.4-14.8)
[2019-11-23 06:23] LABS: ALANINE AMINOTRANSFERASE 113 U/L (12-78); ALBUMIN 1.8 g/dL (3.4-5.0); ANION GAP 6 mmol/L (5-15); CALCIUM 7.4 mg/dL (8.5-10.1); CHLORIDE 105 mmol/L (98-107); CREATININE 0.69 mg/dL (0.7-1.3)
[2019-11-23 06:25] LABS: ALKALINE PHOSPHATASE 309 U/L (45-117); BILIRUBIN,TOTAL 0.3 mg/dL (0.2-1.0); TOTAL PROTEIN 5.2 g/dL (6.4-8.2)
[2019-11-23] MEDS: INSULIN LISPRO 100 UNITS/ML, PEN SQ-INSULIN SCH ×4 (07:00→21:39)
[2019-11-23 07:07] VITALS: BP 114/83
[2019-11-23] MEDS: AMOXICILLIN/CLAV 875-125MG TABLET PO SCH ×2 (09:08→21:29)
[2019-11-23] MEDS: PROPRANOLOL 10 MG TABLET PO SCH (09:09)
[2019-11-23] MEDS: CIPROFLOXACIN DEXAMETHASONE EAR SUSP 7.5ML RIGHT EAR SCH ×2 (09:48→21:30)
[2019-11-23] MEDS ORDERED: POTASSIUM CHLORIDE 20 MEQ, MAGNESIUM SULFATE 1 GM, MVI ADULT 10 ML, THIAMINE 200 MG, FO... IV ONE (10:30)
[2019-11-23] MEDS ORDERED: CYANOCOBALAMIN 1,000 MCG/ML, 1ML IM ONE (10:30)
[2019-11-23 13:22] VITALS: BP 107/75
[2019-11-23] MEDS: ASPIRIN 81 MG TABLET CHEW PO SCH (13:29)
[2019-11-23] MEDS: ACETAMINOPHEN 325 MG TABLET PO PRN (17:15)
[2019-11-23] MEDS ORDERED: WARFARIN 7.5 MG TABLET PO-COUM ONE (18:00)
[2019-11-23 19:40] VITALS: BP 134/96
[2019-11-23] MEDS: FLUTICASONE NASAL SPRAY 16GM NAS SCH (21:28)
[2019-11-23] MEDS: FAMOTIDINE 20 MG TABLET PO SCH (21:29)
[2019-11-24 00:34] VITALS: BP 127/92
[2019-11-24] MEDS: LORazepam 1MG TABLET PO PRN (01:32)
[2019-11-24 05:29] LABS: BASOPHILS # (AUTO) 0.03 x10^3/uL (0-0.1); BASOPHILS % (AUTO) 1 % (0-1); EOSINOPHILS # (AUTO) 0.09 x10^3/uL (0-0.4); EOSINOPHILS % (AUTO) 2 % (1-7); LYMPHOCYTES % (AUTO) 31 % (22-44); MD NO; MEAN CORPUSCULAR HEMOGLOBIN 32.5 pg (27.5-34.5); MEAN CORPUSCULAR HGB CONC 31.8 g/dL (33.2-36.2); MEAN CORPUSCULAR VOLUME 102.2 fL (81-97); MEAN PLATELET VOLUME 6.7 fL (7.4-10.4); MONOCYTES # (AUTO) 0.61 x10^3/uL (0.2-0.8); MONOCYTES % (AUTO) 13 % (2-9); NEUTROPHILS % (AUTO) 54 % (42-75); PLATELET COUNT 278 x10^3/uL (130-400); RED BLOOD COUNT 3.38 x10^6/uL (4.38-5.82); RED CELL DISTRIBUTION WIDTH 14.1 % (9.4-14.8)
[2019-11-24 05:38] LABS: INTERNATIONAL NORMALIZED RATIO 1.18 (0.93-1.1); PROTHROMBIN TIME 12.5 Seconds (9.6-11.5)
[2019-11-24 05:50] LABS: CHLORIDE 111 mmol/L (98-107)
[2019-11-24 06:05] LABS: ALANINE AMINOTRANSFERASE 83 U/L (12-78); ALBUMIN 1.8 g/dL (3.4-5.0); ALKALINE PHOSPHATASE 255 U/L (45-117); ANION GAP 7 mmol/L (5-15); BILIRUBIN,TOTAL 0.4 mg/dL (0.2-1.0); TOTAL PROTEIN 4.9 g/dL (6.4-8.2)
[2019-11-24] MEDS: INSULIN LISPRO 100 UNITS/ML, PEN SQ-INSULIN SCH ×2 (07:00→11:00)
[2019-11-24] MEDS ORDERED: POTASSIUM CHLORIDE 20 MEQ TAB.ER.PRT PO ONE (08:00)
[2019-11-24 08:39] VITALS: BP 125/91
[2019-11-24] MEDS: FAMOTIDINE 20 MG TABLET PO SCH (08:41)
[2019-11-24] MEDS: PROPRANOLOL 10 MG TABLET PO SCH (08:41)
[2019-11-24] MEDS: AMOXICILLIN/CLAV 875-125MG TABLET PO SCH (08:42)
[2019-11-24] MEDS: ASPIRIN 81 MG TABLET CHEW PO SCH (08:42)
[2019-11-24] MEDS: OXYcodone/APAP 5/325MG TABLET PO PRN (08:42)
[2019-11-24] MEDS: CIPROFLOXACIN DEXAMETHASONE EAR SUSP 7.5ML RIGHT EAR SCH (08:44)
[2019-11-24] MEDS: FLUTICASONE NASAL SPRAY 16GM NAS SCH (08:46)
[2019-11-24] MEDS ORDERED: MAGNESIUM OXIDE 400 MG TABLET PO ONE (09:00)
[2019-11-24] MEDS ORDERED: ASPI81TA45 PO (11:48)
[2019-11-24] MEDS ORDERED: PRED5TAB19 PO (11:48)
[2019-11-24] MEDS ORDERED: ACYC-57 PO (11:48)
[2019-11-24] MEDS ORDERED: metFORMIN 500 MG TABLET PO SCH (17:00)
== END 2019-11-24 14:24 | disposition home or self-care (01) | DRG 153 ==
LOC: ED 10:35 → EDIP 12:47 → 4NW 17:54 → 3N 11-22 14:22 → DCLOUNGE 11-24 11:45
PROVIDERS: ADMIT Family Medicine; ATTEND Internal Medicine
DX: H66.91 Otitis media, unspecified, right ear (principal); E87.1 Hypo-osmolality and hyponatremia; F15.20 Other stimulant dependence, uncomplicated; K86.1 Other chronic pancreatitis; F10.239 Alcohol dependence with withdrawal, unspecified; B02.9 Zoster without complications; E78.5 Hyperlipidemia, unspecified; E83.51 Hypocalcemia; E86.0 Dehydration; E87.6 Hypokalemia; H70.91 Unspecified mastoiditis, right ear; H72.91 Unspecified perforation of tympanic membrane, right ear; I11.0 Hypertensive heart disease with heart failure; I25.2 Old myocardial infarction; I45.10 Unspecified right bundle-branch block; I50.9 Heart failure, unspecified; I51.3 Intracardiac thrombosis, not elsewhere classified; K52.9 Noninfective gastroenteritis and colitis, unspecified; R79.1 Abnormal coagulation profile; H73.891 Other specified disorders of tympanic membrane, right ear; H91.91 Unspecified hearing loss, right ear; R74.8 Abnormal levels of other serum enzymes; E11.9 Type 2 diabetes mellitus without complications; F10.229 Alcohol dependence with intoxication, unspecified; F19.10 Other psychoactive substance abuse, uncomplicated; E83.42 Hypomagnesemia; D53.9 Nutritional anemia, unspecified; Z03.818 Encounter for observation for suspected exposure to other biological agents ruled out; Z79.01 Long term (current) use of anticoagulants; Z87.891 Personal history of nicotine dependence; Z91.14 Patient's other noncompliance with medication regimen; Z95.5 Presence of coronary angioplasty implant and graft; Z88.6 Allergy status to analgesic agent; Z79.84 Long term (current) use of oral hypoglycemic drugs; Y90.6 Blood alcohol level of 120-199 mg/100 ml
CPT/HCPCS: 36415; 70450; 71045; 71275; 74178; 80048; 80053; 80307; 81001; 82962; 83036; 83690; 83735; 83880; 84484; 85025; 85610; 87086; 87635; 93005; 96361; 96374; 96375; 96376; G0378; J0696; J2405; J3411; J3475; J3480; Q0162; Q9967; J1815; J2060; J3420; J7030

== ENCOUNTER 2020-06-30 18:42 | Emergency (ER) | payer BC ==
[~2020-06-30] VITALS: Ht 177.8 cm; Wt 82.0 kg
[~2020-06-30 18:42] MED LIST changes: +ACYC-57 PO; +ASPI81TA45 PO; +CLON1TAB PO; -OXYC-302 PO; +OXYC1TAB14 PO; +PRED5TAB19 PO; +SERT-331 PO; +WARF7.5T46 PO
--- NOTE | 2020-06-30 18:49 | NUR ---
THIS IS A 35 YO M BIB EMS FROM HOME W/ C/O EPIGASTRIC ABD PAIN, N/V/D X2 DAYS. PT REPORTS COFFEE GROUNDS EMESIS AND BLACK STOOLS. PT REPORTS PAIN FEELS LIKE PANCREATITIS FLARE UP. PIV CRACK OFF PERSON EMS. PER EMS PT RECEIVED 4MG MORPHINE, 5MG ZOFRAN. PER EMS PTS HR WAS 140 UPON EMS ARRIVAL. PT RESTING ON GURNEY W/ CALL LIGHT IN REACH AND SIDE RAILS UPX2. RESP EVEN AND UNLABORED, NADN. AWAITING ED EVAL. Addendum: 06/30/20 at 1859 by CBRUCIAGA THIS IS A 35 YO M [facility] FROM HOME W/ C/O EPIGASTRIC ABD PAIN, N/V/D X2 DAYS. PT REPORTS COFFEE GROUNDS EMESIS AND BLACK STOOLS. PT REPORTS PAIN FEELS LIKE PANCREATITIS FLARE UP. PIV CRACK OFF PERSON EMS. PER EMS PT RECEIVED 5MG MORPHINE, 8MG ZOFRAN. PER EMS PTS HR WAS 140 UPON EMS ARRIVAL. PT RESTING ON GURNEY W/ CALL LIGHT IN REACH AND SIDE RAILS UPX2. RESP EVEN AND UNLABORED, NADN. AWAITING ED EVAL.
--- NOTE | 2020-06-30 18:59 | NUR ---
REPORT GIVEN TO MICHELLE PINTO. PT RESTING ON GURNEY W/ CALL LIGHT IN REACH AND SIDE RAILS UPX2. RESP EVEN AND UNLABORED, JACQUESN. AWAITING ED EVAL.
--- NOTE | 2020-06-30 19:28 | NUR ---
RECEIVED REPORT FROM MILLIE CALDWELL. PT RESTING ON GURNEY. PAIN PER PT 12/29. VSS. FAMILY NOW AT BEDSIDE.
[2020-06-30] MEDS ORDERED: HYDROmorphone 1 MG/ML, 1ML INJ ONE ×2 (19:51→20:28)
[2020-06-30] MEDS ORDERED: ONDANSETRON 2MG/ML, 2ML ONE (19:52)
[2020-06-30] MEDS: HYDROmorphone 2 MG/ML, 1ML IVPush PRN ×2 (19:55→20:32)
[2020-06-30] MEDS ORDERED: SODIUM CHLORIDE FLUSH 10ML SYR IVF ONE (20:00)
[2020-06-30] MEDS ORDERED: ONDANSETRON 2MG/ML, 2ML IVPush ONE (20:00)
[2020-06-30] MEDS ORDERED: SODIUM CHLORIDE 0.9% 1,000ML IVBOLUS ONE (20:00)
[2020-06-30 20:20] LABS: BASOPHILS % (AUTO) 1 % (0-1); EOSINOPHILS % (AUTO) 2 % (1-7); LYMPHOCYTES % (AUTO) 33 % (22-44); MEAN CORPUSCULAR HEMOGLOBIN 31.6 pg (27.5-34.5); MEAN CORPUSCULAR HGB CONC 34.3 g/dL (33.2-36.2); MEAN PLATELET VOLUME 6.5 fL (7.4-10.4); MONOCYTES % (AUTO) 8 % (2-9); NEUTROPHILS % (AUTO) 55 % (42-75); PLATELET COUNT 415 x10^3/uL (130-400); RED BLOOD COUNT 4.75 x10^6/uL (4.38-5.82); RED CELL DISTRIBUTION WIDTH 13.8 % (9.4-14.8)
[2020-06-30 20:24] LABS: MD NO
[2020-06-30 20:28] LABS: ALANINE AMINOTRANSFERASE 32 U/L (12-78); ANION GAP 10 mmol/L (5-15); CALCIUM 8.8 mg/dL (8.5-10.1); CHLORIDE 111 mmol/L (98-107); CREATININE 0.91 mg/dL (0.7-1.3)
[2020-06-30 20:30] VITALS: BP 122/78
--- NOTE | 2020-06-30 20:30 | NUR ---
PT RESTING ON GURNEY. NADN. SALAZAR.
[2020-06-30 20:33] LABS: ALKALINE PHOSPHATASE 85 U/L (45-117); BILIRUBIN,TOTAL 0.2 mg/dL (0.2-1.0); TOTAL PROTEIN 7.5 g/dL (6.4-8.2); TROPONIN I < 0.015 ng/mL (0.000-0.045)
--- NOTE | 2020-06-30 20:57 | NUR ---
REPORT GIVEN TO MILLIE SWENSON.
--- NOTE | 2020-06-30 21:16 | NUR ---
RECEIVED REPORT FROM MILLIE MARTINEZ. PATIENT DISCHARGED WITH PRESCRIPTIONS AND INSTRUCTION. VERBALIZED UNDERSTANDING.
== END 2020-06-30 21:20 | disposition home or self-care (01) ==
LOC: ED 19:35
DX: R10.13 Epigastric pain (principal); R11.2 Nausea with vomiting, unspecified; R19.7 Diarrhea, unspecified; I10 Essential (primary) hypertension; E11.9 Type 2 diabetes mellitus without complications
CPT/HCPCS: 36415; 80053; 83690; 84484; 85025; 96361; 96374; 96375; 96376; 99284; J1170; J2405; J7030

== ENCOUNTER 2020-07-19 18:18 | Emergency (ER) | payer BC ==
[~2020-07-19] VITALS: Ht 177.8 cm; Wt 82.7 kg
[~2020-07-19 18:18] MED LIST changes: -FOLI0.4T2 PO; +FOLI0.4T5 PO
--- NOTE | 2020-07-19 18:54 | NUR ---
Attempts x3 for PIV by multiple RNs unsuccessful. Pt able to position self for comfort in bed. Report to Shelbi PINTO.
[2020-07-19] MEDS ORDERED: HYDROmorphone 2 MG/ML, 1ML IVPush PRN (19:00)
[2020-07-19] MEDS ORDERED: SODIUM CHLORIDE 0.9% 1,000ML IVBOLUS ONE (19:00)
[2020-07-19] MEDS ORDERED: ONDANSETRON 2MG/ML, 2ML IVPush ONE (19:00)
[2020-07-19] MEDS ORDERED: SODIUM CHLORIDE FLUSH 10ML SYR IVF ONE (19:00)
[2020-07-19] MEDS ORDERED: HYDROmorphone 1 MG/ML, 1ML INJ ONE (19:20)
[2020-07-19] MEDS ORDERED: ONDANSETRON 2MG/ML, 2ML ONE (19:21)
[2020-07-19 19:29] LABS: BASOPHILS % (AUTO) 1 % (0-1); EOSINOPHILS % (AUTO) 3 % (1-7); LYMPHOCYTES % (AUTO) 37 % (22-44); MEAN CORPUSCULAR HEMOGLOBIN 32.1 pg (27.5-34.5); MEAN CORPUSCULAR HGB CONC 34.4 g/dL (33.2-36.2); MEAN PLATELET VOLUME 6.7 fL (7.4-10.4); MONOCYTES % (AUTO) 8 % (2-9); NEUTROPHILS % (AUTO) 51 % (42-75); PLATELET COUNT 487 x10^3/uL (130-400); RED BLOOD COUNT 4.44 x10^6/uL (4.38-5.82); RED CELL DISTRIBUTION WIDTH 14.9 % (9.4-14.8)
--- NOTE | 2020-07-19 19:29 | NUR ---
PT MEDICATED PER ANKUR HANNAN, FAMILY AT BEDSIDE
[2020-07-19 19:30] LABS: MD NO
[2020-07-19 19:38] LABS: ALANINE AMINOTRANSFERASE 27 U/L (12-78); ALBUMIN 3.9 g/dL (3.4-5.0); ANION GAP 11 mmol/L (5-15); CALCIUM 8.5 mg/dL (8.5-10.1); CHLORIDE 112 mmol/L (98-107)
[2020-07-19 19:39] LABS: INTERNATIONAL NORMALIZED RATIO 3.68 (0.93-1.1); PROTHROMBIN TIME 38.4 Seconds (9.6-11.5)
[2020-07-19 19:40] LABS: ALKALINE PHOSPHATASE 77 U/L (45-117); BILIRUBIN,TOTAL 0.1 mg/dL (0.2-1.0); TOTAL PROTEIN 7.1 g/dL (6.4-8.2)
--- NOTE | 2020-07-19 19:43 | NUR ---
PT CONTINUES TO CALL RN FOR ADDITONAL MEDS, ERP UPDATED, STS WILL SEE PATIENT SHORTLY
--- NOTE | 2020-07-19 19:48 | NUR ---
ERP AT BEDSIDE AGAIN FOR ASSESSMENT AND POC AT THIS TIME
[2020-07-19 20:04] VITALS: BP 105/65
--- NOTE | 2020-07-19 20:05 | NUR ---
Patient/Caregiver given discharge instructions and they have confirmed that they understand the instructions. Patient ambulatory with steady gait.
== END 2020-07-19 20:06 | disposition home or self-care (01) ==
LOC: ED 20:00
DX: R10.13 Epigastric pain (principal); R19.7 Diarrhea, unspecified; R11.2 Nausea with vomiting, unspecified; E11.9 Type 2 diabetes mellitus without complications; I11.0 Hypertensive heart disease with heart failure; I50.9 Heart failure, unspecified; I25.2 Old myocardial infarction; Z86.718 Personal history of other venous thrombosis and embolism; Z95.9 Presence of cardiac and vascular implant and graft, unspecified; Z87.891 Personal history of nicotine dependence
CPT/HCPCS: 36415; 80053; 83690; 85025; 85610; 96361; 96374; 96375; 99284; J1170; J2405; J7030

== ENCOUNTER 2020-09-01 18:11 | Emergency (ER) | payer BC ==
[~2020-09-01] VITALS: Ht 177.8 cm; Wt 80.0 kg
--- NOTE | 2020-09-01 18:23 | NUR ---
pt bib for pancreatits. pt left [facility] from [facility] for same complaint. pt with hx of pancreatitis, etoh, and non compliance. last drink last night. md at bedside for evaluation. pt attached to all monitors. vss. charles.
[2020-09-01] MEDS ORDERED: SODIUM CHLORIDE 0.9% 1,000ML IVBOLUS ONE (18:30)
[2020-09-01] MEDS ORDERED: ONDANSETRON 2MG/ML, 2ML IVPush ONE (18:30)
[2020-09-01] MEDS ORDERED: SODIUM CHLORIDE FLUSH 10ML SYR IVF ONE (18:30)
[2020-09-01] MEDS ORDERED: ONDANSETRON 2MG/ML, 2ML ONE (18:42)
--- NOTE | 2020-09-01 18:48 | NUR ---
REPORT GIVEN TO DOUGLAS PINTO.
--- NOTE | 2020-09-01 18:48 | NUR ---
report recieved from olga carr
[2020-09-01 18:54] LABS: BASOPHILS % (AUTO) 1 % (0-1); EOSINOPHILS % (AUTO) 0 % (1-7); LYMPHOCYTES % (AUTO) 30 % (22-44); MEAN CORPUSCULAR HEMOGLOBIN 31.4 pg (27.5-34.5); MEAN CORPUSCULAR HGB CONC 34.1 g/dL (33.2-36.2); MONOCYTES % (AUTO) 5 % (2-9); NEUTROPHILS % (AUTO) 64 % (42-75); PLATELET COUNT 395 x10^3/uL (130-400); RED BLOOD COUNT 5.23 x10^6/uL (4.38-5.82); RED CELL DISTRIBUTION WIDTH 13.5 % (9.4-14.8)
[2020-09-01 18:55] LABS: MD NO
--- NOTE | 2020-09-01 18:57 | NUR ---
PT COMPLAINS OF CHEST PAIN NOW, EKG TAKEN AND SHOWN TO MD. AWAITING LABS, VSS
[2020-09-01 19:04] LABS: ALANINE AMINOTRANSFERASE 30 U/L (12-78); ALBUMIN 3.6 g/dL (3.4-5.0); ANION GAP 11 mmol/L (5-15); CALCIUM 8.8 mg/dL (8.5-10.1); CHLORIDE 107 mmol/L (98-107); CREATININE 0.95 mg/dL (0.7-1.3)
[2020-09-01 19:17] LABS: ALKALINE PHOSPHATASE 103 U/L (45-117); BILIRUBIN,TOTAL 0.3 mg/dL (0.2-1.0); TOTAL PROTEIN 7.3 g/dL (6.4-8.2)
[2020-09-01] MEDS ORDERED: MAALOX/HYOSCYAMINE/LIDOCAINE 45 ML BTL ONE (19:18)
[2020-09-01] MEDS ORDERED: KETOROLAC 30 MG/1 ML ONE (19:18)
--- NOTE | 2020-09-01 19:24 | NUR ---
PT CALLED MULTIPLE TIME FOR PAIN MEDS, SPOKE WITH DR. MANZO AND RECIEVED ORDER FOR GI COCKTAIL AND TORDOL. PT EXPLAINED THAT LABS WERE NORMAL AND NO SIGNS OF PANCREATITIS SEEN. PT REFUSED MEDS AND STATED HE WANTS HIS DISCHARGE PAPERS AND TO GO HOME. ERP AWARE
[2020-09-01 19:27] VITALS: BP 127/97
[2020-09-01] MEDS ORDERED: MAALOX/HYOSCYAMINE/LIDOCAINE 45 ML BTL PO ONE (19:30)
[2020-09-01] MEDS ORDERED: KETOROLAC 30 MG/1 ML IVPush ONE (19:30)
--- NOTE | 2020-09-01 19:37 | NUR ---
PT TO CHECK HIMSELF INTO [facility] TOMORROW, PER LEYDI (SW). COVID SWAB SENT AWAITING RESULTS
== END 2020-09-01 20:22 | disposition home or self-care (01) ==
LOC: ED 18:48
DX: F10.220 Alcohol dependence with intoxication, uncomplicated (principal); Z20.822 Contact with and (suspected) exposure to COVID-19; R10.84 Generalized abdominal pain; R10.13 Epigastric pain; R11.2 Nausea with vomiting, unspecified; I10 Essential (primary) hypertension; E11.9 Type 2 diabetes mellitus without complications; I25.2 Old myocardial infarction; R94.31 Abnormal electrocardiogram [ECG] [EKG]; Y90.0 Blood alcohol level of less than 20 mg/100 ml
CPT/HCPCS: 36415; 80053; 80320; 83690; 85025; 87635; 93005; 96361; 96374; 99284; J2405; J7030; G0480